=== PATIENT | male | born 1995 | race Caucasian/White ===

== ENCOUNTER 2023-06-08 22:23 | Inpatient (IN) ==
[2023-06-08] MEDS: SODIUM CHLORIDE 0.9% 1,000 ML IV SCH (23:07)
[2023-06-08] MEDS: ACETAMINOPHEN 1,000 MG/100 ML VIAL IV STA (23:07)
[2023-06-08 23:10] LABS: Basophils # (auto) 0.05 K/uL (0.00-0.20); Basophils % (auto) 0.3 %; Eosinophils # (auto) 0.05 K/uL (0.00-0.50); Eosinophils % (auto) 0.3 %; Hematocrit (blood only) 37.1 % (42.0-52.0); Hemoglobin 12.9 g/dl (14.0-18.0); Immature Granulocytes # (auto) 0.11 K/uL (0.01-0.20); Immature Granulocytes % (auto) 0.6 %; Lymphocytes % (auto) 12.2 %; Mean Corpuscular Hemoglobin 28.6 pg (25.0-34.0); Mean Corpuscular Hgb Conc 34.8 g/dL (32.0-36.0); Mean Corpuscular Volume 82.3 fL (80.0-100.0); Mean Platelet Volume 10.3 fL (9.4-12.4); Monocytes # (auto) 1.38 K/uL (0.11-0.59); Monocytes % (auto) 7.3 %; Neutrophils # (auto) 14.92 K/uL (1.40-6.50); Neutrophils % (auto) 79.3 %; Platelet Count 404 K/uL (130-400); RDW Coefficient of Variation 12.5 % (11.5-14.5); RDW Standard Deviation 37.9 fL (36.4-46.3); Red Blood Count 4.51 M/uL (4.70-6.10); White Blood Count 18.81 K/ul (4.8-10.8)
[2023-06-08] MEDS: AMPICILLIN/SULBACTAM SOD 3,000 MG in SODIUM CHLOR 0.9% MINI-B 100 ML IV STA (23:27)
[2023-06-08 23:29] LABS: Albumin Globulin Ratio 0.9 (0.9-2); Albumin Level 3.9 gm/dl (3.4-5.0); BUN Creatinine Ratio 17.7 (10-20); Bilirubin,Total 1.1 mg/dl (0.2-1.0); Calcium 9.7 mg/dl (8.6-10.3); Creatinine Clr Calc Pharmacy 139.3 ml/min; Est GFR (African American) 143.6 ml/min; Est GFR (Non-African American) 123.9 ml/min; Globulin 4.3 gm/dl (2.5-4.0); Magnesium 1.6 mg/dl (1.7-2.4); Potassium 3.4 mmol/L (3.5-5.1); Total Protein 8.2 gm/dl (6.0-8.3)
[2023-06-08 23:36] LABS: Troponin I High Sensitivity 4.2 pg/ml (0-20)
[2023-06-08 23:43] LABS: INR 1.1 (0.9-1.1); Partial Thromboplastin Time 28 Seconds (21-31); Prothrombin Time 11.9 Seconds (9.0-12.0)
--- NOTE | 2023-06-08 23:43 | Emergency Department Note ---
History of Present Illness General Chief complaint: Syncope Stated complaint: SYNCOPE, DENTAL PAIN Time Seen by Provider: 06/08/23 22:41 History of Present Illness Maximum Pain Intensity: 10 This is a 28-year-old male presenting to the emergency department for evaluation of left-sided facial pain and syncope. Patient arrives via EMS for evaluation of symptoms. Per history he was at [facility] 2 days ago and given penicillin and an unknown pain medication for possible dental infection. Patient states his last dose of the penicillin was about 6 hours ago. He feels his symptoms have worsened, prompting presentation to this facility. He is without chest pain, chest tightness, or shortness of breath. No known fever. Patient states that he has not followed with a regular doctor in over 15 years. Home Medications Medication Instructions Recorded Confirmed Type acetaminophen 300 mg-codeine 30 mg 1 tab PO Q4H PRN Pain 06/08/23 06/08/23 History tablet ibuprofen 200 mg tablet 400 - 800 mg PO DIRECTED PRN 06/08/23 06/08/23 History Pain penicillin V potassium 500 mg 500 mg PO QID 06/08/23 06/08/23 History tablet Allergies Allergy/AdvReac Type Severity Reaction Status Date / Time pollen extracts Allergy Intermediate ITCHY Verified 06/08/23 23:08 EYES, SNEEZING Past Med/Surg History Medical History No chronic diseases present Surgical History No significant past surgical history Social History Smoking Status: Former smoker Feels Safe at Home: Yes Review of Systems A total of 10 systems reviewed and were otherwise negative Physical Exam Vital Signs Vital Signs - 24 hr 06/08/23 22:35 06/08/23 22:37 06/08/23 23:00 Temperature 37.3 C Temperature Source Oral Pulse Rate 119 H 126 H 95 H Pulse Rate [Apical] Pulse Rate from SpO2 Sensor 94 H Pulse Rhythm [Apical] Pulse Strength [Apical] Respiratory Rate 25 H 15 Respiratory Effort / Characteristics Respiratory Depth Respiratory Pattern Blood Pressure 136/79 Blood Pressure [Right Arm] Blood Pressure Mean 98 Blood Pressure Mean [Right Arm] Blood Pressure Position [Right Arm] Pulse Oximetry 100 96 Oxygen Delivery Method Room Air Sepsis Recent Fever Within 48 Hours No Sepsis New/Unexplained Change in Mental Status N/A Sepsis Action Taken by Nursing No Action Required 06/08/23 23:00 06/08/23 23:30 06/08/23 23:30 Temperature Temperature Source Pulse Rate 104 H Pulse Rate [Apical] Pulse Rate from SpO2 Sensor 104 H Pulse Rhythm [Apical] Pulse Strength [Apical] Respiratory Rate 22 Respiratory Effort / Characteristics Respiratory Depth Respiratory Pattern Blood Pressure 136/87 132/75 Blood Pressure [Right Arm] Blood Pressure Mean 105 90 Blood Pressure Mean [Right Arm] Blood Pressure Position [Right Arm] Pulse Oximetry 98 Oxygen Delivery Method Sepsis Recent Fever Within 48 Hours Sepsis New/Unexplained Change in Mental Status Sepsis Action Taken by Nursing 06/09/23 00:00 06/09/23 00:00 06/09/23 00:30 Temperature Temperature Source Pulse Rate 107 H 101 H Pulse Rate [Apical] Pulse Rate from SpO2 Sensor 108 H 101 H Pulse Rhythm [Apical] Pulse Strength [Apical] Respiratory Rate 14 15 Respiratory Effort / Characteristics Respiratory Depth Respiratory Pattern Blood Pressure 121/78 Blood Pressure [Right Arm] Blood Pressure Mean 89 Blood Pressure Mean [Right Arm] Blood Pressure Position [Right Arm] Pulse Oximetry 94 96 Oxygen Delivery Method Sepsis Recent Fever Within 48 Hours Sepsis New/Unexplained Change in Mental Status Sepsis Action Taken by Nursing 06/09/23 01:00 06/09/23 01:30 06/09/23 01:46 Temperature Temperature Source Pulse Rate 98 H 100 H Pulse Rate [Apical] Pulse Rate from SpO2 Sensor 100 H 100 H Pulse Rhythm [Apical] Pulse Strength [Apical] Respiratory Rate 23 23 Respiratory Effort / Characteristics Respiratory Depth Respiratory Pattern Blood Pressure 130/73 Blood Pressure [Right Arm] Blood Pressure Mean 81 Blood Pressure Mean [Right Arm] Blood Pressure Position [Right Arm] Pulse Oximetry 95 96 Oxygen Delivery Method Sepsis Recent Fever Within 48 Hours Sepsis New/Unexplained Change in Mental Status Sepsis Action Taken by Nursing 06/09/23 01:49 06/09/23 02:00 06/09/23 02:00 Temperature Temperature Source Pulse Rate 86 Pulse Rate [Apical] 88 Pulse Rate from SpO2 Sensor 86 Pulse Rhythm [Apical] Regular Pulse Strength [Apical] Normal Respiratory Rate 20 18 Respiratory Effort / Characteristics Non-Labored Respiratory Depth Normal Respiratory Pattern Regular Blood Pressure 128/78 Blood Pressure [Right Arm] 130/73 Blood Pressure Mean 105 Blood Pressure Mean [Right Arm] 92 Blood Pressure Position [Right Arm] Sitting Pulse Oximetry 96 99 Oxygen Delivery Method Room Air Sepsis Recent Fever Within 48 Hours Sepsis New/Unexplained Change in Mental Status Sepsis Action Taken by Nursing 06/09/23 02:30 06/09/23 03:00 06/09/23 03:00 Temperature Temperature Source Pulse Rate 91 H Pulse Rate [Apical] Pulse Rate from SpO2 Sensor 91 H 85 Pulse Rhythm [Apical] Pulse Strength [Apical] Respiratory Rate 18 Respiratory Effort / Characteristics Respiratory Depth Respiratory Pattern Blood Pressure 128/78 Blood Pressure [Right Arm] Blood Pressure Mean 93 Blood Pressure Mean [Right Arm] Blood Pressure Position [Right Arm] Pulse Oximetry 97 98 Oxygen Delivery Method Sepsis Recent Fever Within 48 Hours Sepsis New/Unexplained Change in Mental Status Sepsis Action Taken by Nursing VITALS: Vitals are noted on the nurse's note and reviewed by myself. Vital signs tachycardia GENERAL: Well-developed, well-nourished, white male, who is moderately uncomfortable on presentation. HEAD: Normocephalic atraumatic. MOUTH: Notable left-sided facial edema. Dentition in poor repair. Mucous membranes moist. Tonsils are not enlarged. Pharynx without erythema, blood, or exudate. Uvula midline. Airway patent. NECK: Supple without nuchal rigidity. No lymphadenopathy. No thyromegaly. Cervical spine is nontender. HEART: Regular rate and rhythm without murmurs gallops or rubs. LUNGS: Clear to auscultation bilaterally without wheezes, rales or rhonchi. No retractions or accessory muscle use. ABDOMEN: Positive normal bowel sounds x 4. Soft, nontender, without masses or organomegaly. No guarding or rebound tenderness. Course Administered Medications Magnesium Sulfate/Dextrose (Magnesium Sulfate / D5w) 1 gm in 100 mls @ 50 mls/hr IV Q2H [facility] Stop: 06/09/23 05:59 Last Admin: 06/09/23 02:53 Dose: 50 mls/hr Documented By: MUNIR Potassium Chloride/Sodium Chloride (Normal Saline W/20 Meq Kcl) 20 meq in 1,000 mls @ 80 mls/hr IV .[id number] [facility]; Protocol Stop: 06/10/23 02:59 Last Admin: 06/09/23 02:53 Dose: 80 mls/hr Documented By: MUNIR Discontinued Medications Ampicillin Sodium/Sulbactam Sodium 3,000 mg/ Sodium Chloride 100 mls @ 200 mls/hr IV NOW STA Stop: 06/08/23 23:13 Last Infusion: 06/09/23 00:01 Dose: Infused Documented By: Admin: 06/08/23 23:27 Dose: 200 mls/hr Documented By: MUNIR Sodium Chloride (Nss) 1,000 mls @ 999 mls/hr IV .Q1H1M JOIE Stop: 06/08/23 23:45 Last Infusion: 06/09/23 00:10 Dose: Infused Documented By: Admin: 06/08/23 23:07 Dose: 999 mls/hr Documented By: ÁNGEL Acetaminophen (Ofirmev) 1,000 mg in 100 mls @ 400 mls/hr IV NOW STA Stop: 06/08/23 23:00 Last Infusion: 06/08/23 23:26 Dose: Infused Documented By: Admin: 06/08/23 23:07 Dose: 400 mls/hr Documented By: ÁNGEL Sodium Chloride (Nss) 1,000 mls @ 999 mls/hr IV .Q1H1M JOIE Stop: 06/09/23 01:15 Last Infusion: 06/09/23 02:52 Dose: Infused Documented By: Admin: 06/09/23 01:39 Dose: 999 mls/hr Documented By: MUNIR Pantoprazole Sodium 40 mg/ (Syringe) 10 mls @ 5 mls/min IV NOW STA Stop: 06/09/23 02:01 Last Admin: 06/09/23 02:53 Dose: 5 mls/min Documented By: MUNIR Ioversol (Optiray 320 100ml) 92 ml IV ONCE ONE Stop: 06/09/23 00:14 Last Admin: 06/09/23 00:13 Dose: 92 ml Documented By: KAYLEEN Medical Decision Making Differential Diagnosis Differential diagnosis includes: Etiologies such as cellulitis, abscess, osteomyelitis, MRSA infection, DVT, necrotizing fasciitis, dermatitis, drug eruption, as well as others were entertained Laboratory Data 06/08/23 22:37 06/08/23 22:37 Lab Results 06/08/23 06/08/23 06/08/23 Range/Units 22:37 23:08 23:50 WBC 18.81 H (4.8-10.8) K/ul RBC 4.51 L (4.70-6.10) M/uL Hgb 12.9 L (14.0-18.0) g/dl Hct 37.1 L (42.0-52.0) % MCV 82.3 (80.0-100.0) fL MCH 28.6 (25.0-34.0) pg MCHC 34.8 (32.0-36.0) g/dL RDW Std Deviation 37.9 (36.4-46.3) fL RDW Coeff of Ankush 12.5 (11.5-14.5) % Plt Count 404 H (130-400) K/uL MPV 10.3 (9.4-12.4) fL Immature Gran % (Auto) 0.6 % Neut % (Auto) 79.3 % Lymph % (Auto) 12.2 % Grand % (Auto) 7.3 % Eos % (Auto) 0.3 % Baso % (Auto) 0.3 % Neut # (Auto) 14.92 H (1.40-6.50) K/uL Lymph # (Auto) 2.30 (1.20-3.40) K/uL Grand # (Auto) 1.38 H (0.11-0.59) K/uL Eos # (Auto) 0.05 (0.00-0.50) K/uL Baso # (Auto) 0.05 (0.00-0.20) K/uL Immature Gran # (Auto) 0.11 (0.01-0.20) K/uL PT 11.9 (9.0-12.0) Seconds INR 1.1 (0.9-1.1) APTT 28 (21-31) Seconds PTT Ratio 1.0 Sodium 133 L (136-145) mmol/L Potassium 3.4 L (3.5-5.1) mmol/L Chloride 96 L (98-107) mmol/L Carbon Dioxide 21 (21-32) mmol/L Anion Gap 16 H (3-11) BUN 14 (6-23) mg/dl Creatinine 0.79 (0.6-1.4) mg/dl Est Cr Clr Drug Dosing 139.3 ml/min Est GFR ( Amer) 143.6 ml/min Est GFR (Non-Af Amer) 123.9 ml/min BUN/Creatinine Ratio 17.7 (10-20) Glucose 102 H (70-99(Fasting)) mg/dl Lactate 1.9 (0.4-2.0) mmol/L Calcium 9.7 (8.6-10.3) mg/dl Magnesium 1.6 L (1.7-2.4) mg/dl Total Bilirubin 1.1 H (0.2-1.0) mg/dl AST 30 (13-39) U/L ALT 38 (7-52) U/L Alkaline Phosphatase 92 (34-104) U/L Troponin I High Sens 4.2 (0-20) pg/ml Total Protein 8.2 (6.0-8.3) gm/dl Albumin 3.9 (3.4-5.0) gm/dl Globulin 4.3 H (2.5-4.0) gm/dl Albumin/Globulin Ratio 0.9 (0.9-2) Urine Color Dark Yellow Urine Appearance Clear (Clear) Urine pH 8.0 H (4.5-7.5) Ur Specific [place] 1.029 (1.000-1.030) Urine Protein 1+ H (Negative) Urine Glucose (UA) Negative (Negative) Urine Ketones 4+ H (Negative) Urine Blood Negative (Negative) Urine Nitrite Negative (Negative) Urine Bilirubin 1+ H (Negative) Urine Urobilinogen Positive H (Negative) Ur Leukocyte Esterase Negative (Negative) Urine WBC (Auto) 1-5 (0-5) /hpf Urine RBC (Auto) 5-10 H (0-4) /hpf U Hyaline Cast (Auto) 0 (0-5) /lpf U Epithel Cells (Auto) 20-30 H (0-5) /lpf Urine Bacteria (Auto) Negative (Negative) Urine Opiates Screen Pos H (Neg) Ur Methadone, Qual Neg (Neg) Urine Barbiturates Neg (Neg) Ur Phencyclidine (PCP) Neg (Neg) U Amphetamin/Meth Scrn Neg (Neg) MDMA (Ecstasy) Screen Neg (Neg) U Benzodiazepines Scrn Neg (Neg) Ur Cocaine Metabolite Neg (Neg) U Marijuana (THC) Screen Pos H (Neg) Ethyl Alcohol mg/dL < 10.0 (<10.0) mg/dl Imaging Data Radiologist's Impression: Soft Tissue Neck CT 06/08/23 22:44 CR Exam(s): CT NECK With Contrast IV Amt: 92 ml opti 320 EXAM: CT Neck With Intravenous Contrast CLINICAL HISTORY: Left side facial swelling. TECHNIQUE: Axial computed tomography images of the neck with intravenous contrast. CTDI is 13.86 mGy and DLP is 503.09 mGy-cm. Automated exposure control was utilized for the study. A dose lowering technique was utilized adhering to the principles of ALARA. CONTRAST: Patient received 92 ml opti 320 of IV contrast COMPARISON: No relevant prior studies available. FINDINGS: Oropharynx: Unremarkable. No significant tonsillar enlargement. No peritonsillar abscess. Hypopharynx: Unremarkable. Larynx: Unremarkable. Normal epiglottis. Trachea: Unremarkable. Retropharyngeal space: Unremarkable. Submandibular/parotid glands: Unremarkable. Glands are normal in size. Thyroid: Unremarkable. No enlarged or calcified nodules. Bones/joints: A multiloculated abscess surrounding the left mandibular ramus measures 6 x 4 x 4 cm in aggregate. No acute fracture. Soft tissues: Unremarkable. Vasculature: No acute findings. Lymph nodes: Prominent lymph nodes in the left neck are likely reactive. Dental: Numerous dental caries throughout the dentition is noted. Presumed large periapical abscess of the second left mandibular molar. Additional periapical abscesses of the first and second right mandibular molars are noted. IMPRESSION: 1. A multiloculated abscess surrounding the left mandibular ramus measures 6 x 4 x 4 cm in aggregate. 2. Presumed large periapical abscess of the second left mandibular molar. 3. Additional periapical abscesses of the first and second right mandibular molars are noted. 4. Numerous dental caries throughout the dentition is noted. Communications: Verify Receipt Electronically signed by: Ginette Bonilla MD 06/09/23 00:34 AM MDM Narrative Physical exam and history were performed. Nursing notes, EMR, and Medication List were personally reviewed. No social concerns were identified as barriers to patients care. Patient appears to have had a syncopal episode today. On presentation the patient is tachycardic and tachypneic. He has notable edema to the left side of his face. IV access was established and labs were obtained. He was immediately started on Unasyn and sent to CT scan for imaging. Patient's blood work is as above and was reviewed. He does have an elevated white blood cell count of 18,000. He is mildly anemic at 12.9. Transaminases are not diagnostic. Lactic is normal at 1.9 with blood cultures pending. Urine shows some ketones, and he was given [address] scan was reviewed by myself and radiology, and does show large left-sided facial abscess. Overall the patient does not appear well for discharge home. Case was discussed with the on-call hospitalist who agreed to evaluate the patient here in the ER. I did send a message to Dr. Cornelius who is on-call for oral maxillofacial surgery, as he will likely need to be involved at some point in the patient's care. Please see the hospitalist dictation for further patient course, plan, and disposition. The chart was completed utilizing [id number] Speech Voice Recognition Software. Grammatical errors, random word insertions, pronoun errors, and incomplete sentences are an occasional consequence of this system due to software limitations, ambient noise, and hardware issues. Any formal questions or concerns about the content, text, or information contained within the body of this dictation should be directly addressed to the provider for clarification. . Impression & Plan Abscess of face Discharge Plan Visit Data Chief Complaint: Syncope Stated Complaint: SYNCOPE, DENTAL PAIN ED Provider: Rubio Sutton ED Midlevel Provider: Thierno Dowd Discharge Problem: Abscess of face Discharge Instructions Interventions: ED Discharge Assessment Last Done: 06/09/23 04:12 Forms Stand Alone Forms: [place] Prescriptions Prescriptions: No Action penicillin V potassium 500 mg Tablet 500 mg PO QID Rx Instructions: PER PT "HAVE A COUPLE LEFT" acetaminophen-codeine [Tylenol-Codeine #3] 300-30 mg Tablet 1 tab PO Q4H PRN (Reason: Pain) ibuprofen 200 mg Tablet 400 - 800 mg PO DIRECTED PRN (Reason: Pain) Referrals Referrals: PCP,NO [Primary Care Provider] -
[2023-06-09 00:10] LABS: Appearance Urine Clear (Clear); Bacteria Urine Automated Negative (Negative); Blood Urine Negative (Negative); Cast Urine Automated 0 /lpf (0-5); Color Urine Dark Yellow; Epithelial Cell Urine Auto 20-30 /lpf (0-5); Glucose Urine UA Negative (Negative); Ketones Urine 4+ (Negative); Leukocyte Esterase Urine Negative (Negative); Nitrite Urine Negative (Negative); Specific Gravity Urine 1.029 (1.000-1.030); Urobilinogen Urine Positive (Negative)
[2023-06-09 00:11] LABS: Bilirubin Urine 1+ (Negative); Protein Urine 1+ (Negative)
[2023-06-09] MEDS: OPTIRAY 320 100ml IV ONE (00:13)
--- NOTE | 2023-06-09 00:35 | CT Scan Report ---
Exam(s): CT NECK With Contrast IV Amt: 92 ml opti 320 EXAM: CT Neck With Intravenous Contrast CLINICAL HISTORY: Left side facial swelling. TECHNIQUE: Axial computed tomography images of the neck with intravenous contrast. CTDI is 13.86 mGy and DLP is 503.09 mGy-cm. Automated exposure control was utilized for the study. A dose lowering technique was utilized adhering to the principles of ALARA. CONTRAST: Patient received 92 ml opti 320 of IV contrast COMPARISON: No relevant prior studies available. FINDINGS: Oropharynx: Unremarkable. No significant tonsillar enlargement. No peritonsillar abscess. Hypopharynx: Unremarkable. Larynx: Unremarkable. Normal epiglottis. Trachea: Unremarkable. Retropharyngeal space: Unremarkable. Submandibular/parotid glands: Unremarkable. Glands are normal in size. Thyroid: Unremarkable. No enlarged or calcified nodules. Bones/joints: A multiloculated abscess surrounding the left mandibular ramus measures 6 x 4 x 4 cm in aggregate. No acute fracture. Soft tissues: Unremarkable. Vasculature: No acute findings. Lymph nodes: Prominent lymph nodes in the left neck are likely reactive. Dental: Numerous dental caries throughout the dentition is noted. Presumed large periapical abscess of the second left mandibular molar. Additional periapical abscesses of the first and second right mandibular molars are noted. IMPRESSION: 1. A multiloculated abscess surrounding the left mandibular ramus measures 6 x 4 x 4 cm in aggregate. 2. Presumed large periapical abscess of the second left mandibular molar. 3. Additional periapical abscesses of the first and second right mandibular molars are noted. 4. Numerous dental caries throughout the dentition is noted. Communications: Verify Receipt Electronically signed by: Ginette Bonilla MD 06/09/23 00:34 AM
[2023-06-09 00:45] LABS: Amphetamines+Metham, Urine Neg (Neg); Barbiturates, Urine Neg (Neg); Benzodiazepine, Urine Neg (Neg); Cocaine, Urine Neg (Neg); MDMA (Ecstacy), Urine Neg (Neg); Marijuana, Urine Pos (Neg); Methadone, Urine Neg (Neg); Opiate, Urine Pos (Neg); Phencyclidine, Urine Neg (Neg)
[2023-06-09] MEDS: SODIUM CHLORIDE 0.9% 1,000 ML IV SCH (01:39)
--- NOTE | 2023-06-09 02:05 | History & Physical Report ---
Date of Service June 09, 2023 Assessment & Plan (1) Abscess of face: (2) Periapical abscess with facial involvement: (3) Hypomagnesemia: Plan Multiloculated abscess surrounding left mandibular ramus- Measures 6 x 4 x 4 cm Large periapical abscess of the second left mandibular molar Additional periapical abscesses of the first and second right mandibular molars Numerous dental carious N.p.o. Unasyn 3 g IV every 6 hours Status post 2 L normal saline in the ED NSS + KCl 20 mill equivalents at 80 mL/h x 2 additional liters Pantoprazole 40 mg IV daily Tylenol 1 g IV every 8 hours as needed for mild pain or fever Morphine sulfate 2 mg IV every 3 hours as needed for moderate to severe pain Consult Dr. Cornelius Hypomagnesemia- Magnesium 1.6 on admission Give magnesium sulfate 2 g IV, and recheck laboratories in a.m. History of Present Illness Chief Complaint: The patient presents to the emergency department with a syncopal episode, and progressively worsening dental pain and left facial swelling over the past 48 hours, and now is not able to open his mouth Primary Care Provider: NO PCP The patient is a 28-year-old male with no significant past medical history, who initially presented to [facility] 2 days ago for progressively worsening left-sided facial pain and swelling, along with a syncopal episode, and was given a prescription for Pen-Vee K and acetaminophen with codeine. His symptoms worsened considerably since then, and presented to the emergency department at [facility] for assessment. CT scan of soft tissue of neck and face showed a 6 x 4 x 4 cm left mandibular ramus abscess, and a large periapical abscess second left, and a small right mandibular abscess adjacent to first and second Allergies Allergy/AdvReac Type Severity Reaction Status Date / Time pollen extracts Allergy Intermediate ITCHY Verified 06/08/23 23:08 EYES, SNEEZING Home Medications Medication Instructions Recorded Confirmed Type acetaminophen 300 mg-codeine 30 mg 1 tab PO Q4H PRN Pain 06/08/23 06/08/23 History tablet ibuprofen 200 mg tablet 400 - 800 mg PO DIRECTED PRN 06/08/23 06/08/23 History Pain penicillin V potassium 500 mg 500 mg PO QID 06/08/23 06/08/23 History tablet Past Med/Surg History Medical History No chronic diseases present Surgical History No significant past surgical history Social History Smoking Status: Former smoker Hx Alcohol Use: No Hx Substance Use: No Preferred Language: Tamazight Communication Ability: Effective Blindmaker Required: No Beliefs That Will Affect Care: None Feels Safe at Home: Yes Safety Concerns: Feels Safe At This Time Review of Systems Review of Systems: The patient denies chest pain, palpitations, shortness of breath, dyspnea on exertion, cough, lower extremity swelling, fevers, chills, sweats, diarrhea , constipation, abdominal pain, pelvic pain, blood in urine or stool, dysuria, urinary frequency or urgency, memory loss, loss of consciousness, rash, abnormal bruising or bleeding, imbalance, focal or generalized weakness, numbness or tingling in arms or legs, generalized arthralgias or myalgias, back or neck pain, or night sweats. The review of systems is otherwise negative other than for that already noted above, and at least 10 systems have been reviewed. Physical Exam Physical Exam: The patient is awake, alert and oriented 3, well developed and well nourished, lying in bed and in no acute distress. HEENT--PERRL, EOMI. Limited exam due to inability open mouth wide, but visible abscess left mucous membranes Neck--supple. No JVD. No bruits. Thyroid normal, trachea midline, no adenopathy. Heart--normal S1 and S2. No murmurs, rubs or gallops. Lungs--clear bilaterally, no respiratory distress, no accessory muscle use. Abdomen--normal bowel sounds and soft. Nontender. Nondistended, no hernias or masses, no organomegaly. Extremities--no cyanosis or clubbing. No edema. Dermatologic--normal skin turgor, normal color, no abnormal lymph nodes, no rash. Neurologic--cranial nerves II through XII grossly intact. Rheumatologic--normal range of motion. Psychiatric--normal affect. Results & Data Results & Data Vital Signs (Past 12 Hours) Vital Signs Temp Pulse Pulse Resp BP BP Pulse Ox 06/09/23 01:49 88 20 130/73 96 06/08/23 22:37 126 H 06/08/23 22:35 37.3 C 119 H 25 H 136/79 100 O2 Del Method 06/09/23 01:49 Room Air 06/08/23 22:37 06/08/23 22:35 Room Air Laboratory Results Laboratory Results WBC 18.81 K/ul (4.8-10.8) H 06/08/23 22:37 RBC 4.51 M/uL (4.70-6.10) L 06/08/23 22:37 Hgb 12.9 g/dl (14.0-18.0) L 06/08/23 22:37 Hct 37.1 % (42.0-52.0) L 06/08/23 22:37 MCV 82.3 fL (80.0-100.0) 06/08/23 22:37 MCH 28.6 pg (25.0-34.0) 06/08/23 22:37 MCHC 34.8 g/dL (32.0-36.0) 06/08/23 22:37 RDW Std Deviation 37.9 fL (36.4-46.3) 06/08/23 22:37 RDW Coeff of Ankush 12.5 % (11.5-14.5) 06/08/23 22:37 Plt Count 404 K/uL (130-400) H 06/08/23 22:37 MPV 10.3 fL (9.4-12.4) 06/08/23 22:37 Immature Gran % (Auto) 0.6 % 06/08/23 22:37 Neut % (Auto) 79.3 % 06/08/23 22:37 Lymph % (Auto) 12.2 % 06/08/23 22:37 Pepin % (Auto) 7.3 % 06/08/23 22:37 Eos % (Auto) 0.3 % 06/08/23 22:37 Baso % (Auto) 0.3 % 06/08/23 22:37 Neut # (Auto) 14.92 K/uL (1.40-6.50) H 06/08/23 22:37 Lymph # (Auto) 2.30 K/uL (1.20-3.40) 06/08/23 22:37 Pepin # (Auto) 1.38 K/uL (0.11-0.59) H 06/08/23 22:37 Eos # (Auto) 0.05 K/uL (0.00-0.50) 06/08/23 22:37 Baso # (Auto) 0.05 K/uL (0.00-0.20) 06/08/23 22:37 Immature Gran # (Auto) 0.11 K/uL (0.01-0.20) 06/08/23 22:37 PT 11.9 Seconds (9.0-12.0) 06/08/23 22:37 INR 1.1 (0.9-1.1) 06/08/23 22:37 APTT 28 Seconds (21-31) 06/08/23 22:37 PTT Ratio 1.0 06/08/23 22:37 Sodium 133 mmol/L (136-145) L 06/08/23 22:37 Potassium 3.4 mmol/L (3.5-5.1) L 06/08/23 22:37 Chloride 96 mmol/L (98-107) L 06/08/23 22:37 Carbon Dioxide 21 mmol/L (21-32) 06/08/23 22:37 Anion Gap 16 (3-11) H 06/08/23 22:37 BUN 14 mg/dl (6-23) 06/08/23 22:37 Creatinine 0.79 mg/dl (0.6-1.4) 06/08/23 22:37 Est Cr Clr Drug Dosing 139.3 ml/min 06/08/23 22:37 Est GFR ( Amer) 143.6 ml/min 06/08/23 22:37 Est GFR (Non-Af Amer) 123.9 ml/min 06/08/23 22:37 BUN/Creatinine Ratio 17.7 (10-20) 06/08/23 22:37 Glucose 102 mg/dl (70-99(Fasting)) H 06/08/23 22:37 Lactate 1.9 mmol/L (0.4-2.0) 06/08/23 23:08 Calcium 9.7 mg/dl (8.6-10.3) 06/08/23 22:37 Magnesium 1.6 mg/dl (1.7-2.4) L 06/08/23 22:37 Total Bilirubin 1.1 mg/dl (0.2-1.0) H 06/08/23 22:37 AST 30 U/L (13-39) 06/08/23 22:37 ALT 38 U/L (7-52) 06/08/23 22:37 Alkaline Phosphatase 92 U/L (34-104) 06/08/23 22:37 Troponin I High Sens 4.2 pg/ml (0-20) 06/08/23 22:37 Total Protein 8.2 gm/dl (6.0-8.3) 06/08/23 22:37 Albumin 3.9 gm/dl (3.4-5.0) 06/08/23 22:37 Globulin 4.3 gm/dl (2.5-4.0) H 06/08/23 22:37 Albumin/Globulin Ratio 0.9 (0.9-2) 06/08/23 22:37 Urine Color Dark Yellow 06/08/23 23:50 Urine Appearance Clear (Clear) 06/08/23 23:50 Urine pH 8.0 (4.5-7.5) H 06/08/23 23:50 Ur Specific Twining 1.029 (1.000-1.030) 06/08/23 23:50 Urine Protein 1+ (Negative) H 06/08/23 23:50 Urine Glucose (UA) Negative (Negative) 06/08/23 23:50 Urine Ketones 4+ (Negative) H 06/08/23 23:50 Urine Blood Negative (Negative) 06/08/23 23:50 Urine Nitrite Negative (Negative) 06/08/23 23:50 Urine Bilirubin 1+ (Negative) H 06/08/23 23:50 Urine Urobilinogen Positive (Negative) H 06/08/23 23:50 Ur Leukocyte Esterase Negative (Negative) 06/08/23 23:50 Urine WBC (Auto) 1-5 /hpf (0-5) 06/08/23 23:50 Urine RBC (Auto) 5-10 /hpf (0-4) H 06/08/23 23:50 U Hyaline Cast (Auto) 0 /lpf (0-5) 06/08/23 23:50 U Epithel Cells (Auto) 20-30 /lpf (0-5) H 06/08/23 23:50 Urine Bacteria (Auto) Negative (Negative) 06/08/23 23:50 Urine Opiates Screen Pos (Neg) H 06/08/23 23:50 Ur Methadone, Qual Neg (Neg) 06/08/23 23:50 Urine Barbiturates Neg (Neg) 06/08/23 23:50 Ur Phencyclidine (PCP) Neg (Neg) 06/08/23 23:50 U Amphetamin/Meth Scrn Neg (Neg) 06/08/23 23:50 MDMA (Ecstasy) Screen Neg (Neg) 06/08/23 23:50 U Benzodiazepines Scrn Neg (Neg) 06/08/23 23:50 Ur Cocaine Metabolite Neg (Neg) 06/08/23 23:50 U Marijuana (THC) Screen Pos (Neg) H 06/08/23 23:50 Ethyl Alcohol mg/dL < 10.0 mg/dl (<10.0) 06/08/23 23:08 Impressions Soft Tissue Neck CT 06/08/23 22:44 CR Exam(s): CT NECK With Contrast IV Amt: 92 ml opti 320 EXAM: CT Neck With Intravenous Contrast CLINICAL HISTORY: Left side facial swelling. TECHNIQUE: Axial computed tomography images of the neck with intravenous contrast. CTDI is 13.86 mGy and DLP is 503.09 mGy-cm. Automated exposure control was utilized for the study. A dose lowering technique was utilized adhering to the principles of ALARA. CONTRAST: Patient received 92 ml opti 320 of IV contrast COMPARISON: No relevant prior studies available. FINDINGS: Oropharynx: Unremarkable. No significant tonsillar enlargement. No peritonsillar abscess. Hypopharynx: Unremarkable. Larynx: Unremarkable. Normal epiglottis. Trachea: Unremarkable. Retropharyngeal space: Unremarkable. Submandibular/parotid glands: Unremarkable. Glands are normal in size. Thyroid: Unremarkable. No enlarged or calcified nodules. Bones/joints: A multiloculated abscess surrounding the left mandibular ramus measures 6 x 4 x 4 cm in aggregate. No acute fracture. Soft tissues: Unremarkable. Vasculature: No acute findings. Lymph nodes: Prominent lymph nodes in the left neck are likely reactive. Dental: Numerous dental caries throughout the dentition is noted. Presumed large periapical abscess of the second left mandibular molar. Additional periapical abscesses of the first and second right mandibular molars are noted. IMPRESSION: 1. A multiloculated abscess surrounding the left mandibular ramus measures 6 x 4 x 4 cm in aggregate. 2. Presumed large periapical abscess of the second left mandibular molar. 3. Additional periapical abscesses of the first and second right mandibular molars are noted. 4. Numerous dental caries throughout the dentition is noted. Communications: Verify Receipt Electronically signed by: Ginette Bonilla MD 06/09/23 00:34 AM Code Status & VTE Plan Code Status Full code VTE Prophylaxis Plan VTE Prophylaxis will be ordered: Yes PG Care Time/CCT Total # of Minutes Spent Total Time Spent with Patient: Total time spent is greater than 50% in coordination of care (as documented) at patient's floor/unit and/or counseling patient: Coding Level of Care Code 64215 INT INP/OBS CARE 3/75MIN Diagnoses Abscess of face L02.01 Periapical abscess with facial involvement K04.7 Hypomagnesemia E83.42
[2023-06-09] MEDS: PANTOprazole 40 MG in SYRINGE 0 ML IV STA (02:53)
[2023-06-09] MEDS: MAGNESIUM SULFATE / D5W 1 GM/100 ML BAG IV SCH (02:53)
[2023-06-09] MEDS: NSS + 20MEQ KCL 20 MEQ/1,000 ML BAG IV SCH (02:53)
[2023-06-09] MEDS ORDERED: ONDANSETRON INJ 2 MG/ML 2 ML VIAL IV PRN (05:00)
[2023-06-09] MEDS: MoRPHine SULFATE 2 MG/ML CARP IV PRN (05:01)
[2023-06-09] MEDS: AMPICILLIN/SULBACTAM SOD 3,000 MG in SODIUM CHLOR 0.9% MINI-B 100 ML IV SCH (06:00)
--- NOTE | 2023-06-09 07:38 | Hospitalist Progress Note ---
Date of Service June 09, 2023 Assessment & Plan (1) Hypomagnesemia: (2) Periapical abscess with facial involvement: (3) Abscess of face: Plan Ovidio Daugherty is a 28-year-old male with no significant past medical history, who initially presented to [facility] 2 days ago for progressively worsening left-sided facial pain and swelling, along with a syncopal episode, and was given a prescription for Pen-Vee K and acetaminophen with codeine. His symptoms worsened considerably since then, and presented to the emergency department at [facility] for evaluation. Multiloculated abscess surrounding left mandibular ramus -Large periapical abscess of the second left mandibular molar, measures 6 x 4 x 4 cm -Additional periapical abscesses of the first and second right mandibular molars. Numerous dental caries. -Dr. Cornelius reviewed imaging, but is currently out of town. Recommend continuing IV antibiotics and Peridex mouthwash. -Anticipate improvement of symptoms in next 1-2 days, but if more immediate care/incision & drainage is needed he will need to be transferred to outside hospital. -Unasyn 3 g IV every 6 hours -Pantoprazole 40 mg IV daily -Tylenol 1 g IV every 8 hours as needed for mild pain or fever, Morphine sulfate 2 mg IV every 3 hours as needed for moderate to severe pain Hypomagnesemia -Magnesium 1.6 on admission, repleted -Repeat magnesium level ordered for a.m. VTE Prophylaxis: Low risk Diet: NPO since unable to swallow, IVF Code Status: Full Code Admission and Anticipated Discharge Date Admission Date: June 09, 2023 Supervising Physician Co-Signing Physician Notes Attending Physician Supervision Note: I independently interviewed and examined the patient and verified the sanford history and physical, reviewed labs and image studies and agree with findings and care plan noted above. Subjective Patient seen and examined at bedside. Patient endorses ongoing pain but states it does improve temporarily with the Tylenol and Morphine. He notes pain with movement of his head as well as with talking. Denies shortness of breath, chest pain, abdominal pain. Review of Systems Review of Systems: As per above Physical Exam Constitutional: WD/WN, vitals as above Eyes: + anicteric sclerae; no conjunctival abn ormality ENMT: Ears: no external ear abnormality Nose: no external nose abnormality Mouth: + restricted motion of mouth, + dental caries, + poor dentition and + small oral opening Patient unable to fully open mouth due to pain. Notable swelling at left side of face, significant tenderness with light touch to impacted region. Respiratory: normal respiratory effort, lungs clear to auscultation Cardiovascular: Rate/Rhythm: regular rate and regular rhythm Skin: no rashes, warm and dry Psychiatric: A+Ox3, euthymic affect Results & Data Results & Data Vital Signs (Past 12 Hours) Vital Signs Temp Pulse Pulse Pulse Resp BP BP 06/09/23 04:00 06/09/23 04:00 37.0 C 105 H 18 126/72 06/09/23 03:00 128/78 06/09/23 03:00 06/09/23 02:30 91 H 18 06/09/23 02:00 128/78 06/09/23 02:00 86 18 06/09/23 01:49 88 20 130/73 06/09/23 01:46 130/73 06/09/23 01:30 100 H 23 06/09/23 01:00 98 H 23 06/09/23 00:30 101 H 15 06/09/23 00:00 107 H 14 06/09/23 00:00 121/78 06/08/23 23:30 104 H 22 06/08/23 23:30 132/75 06/08/23 23:00 136/87 06/08/23 23:00 95 H 15 06/08/23 22:37 126 H 06/08/23 22:35 37.3 C 119 H 25 H 136/79 Pulse Ox O2 Del Method 06/09/23 04:00 Room Air 06/09/23 04:00 100 Room Air 06/09/23 03:00 06/09/23 03:00 98 06/09/23 02:30 97 06/09/23 02:00 06/09/23 02:00 99 06/09/23 01:49 96 Room Air 06/09/23 01:46 06/09/23 01:30 96 06/09/23 01:00 95 06/09/23 00:30 96 06/09/23 00:00 94 06/09/23 00:00 06/08/23 23:30 98 06/08/23 23:30 06/08/23 23:00 06/08/23 23:00 96 06/08/23 22:37 06/08/23 22:35 100 Room Air Resident Activity Tracking Resident Involvement: Resident Care Provided Care Provided: Adult Hospital Medicine
[2023-06-09 07:43] LABS: Basophils # (auto) 0.07 K/uL (0.00-0.20); Basophils % (auto) 0.4 %; Eosinophils % (auto) 0.5 %; Hematocrit (blood only) 32.4 % (42.0-52.0); Immature Granulocytes % (auto) 0.5 %; Lymphocytes # (auto) 1.96 K/uL (1.20-3.40); Lymphocytes % (auto) 10.7 %; Mean Corpuscular Hemoglobin 28.5 pg (25.0-34.0); Mean Corpuscular Volume 83.9 fL (80.0-100.0); Mean Platelet Volume 10.5 fL (9.4-12.4); Monocytes # (auto) 1.33 K/uL (0.11-0.59); Monocytes % (auto) 7.3 %; Neutrophils # (auto) 14.77 K/uL (1.40-6.50); Neutrophils % (auto) 80.6 %; Platelet Count 344 K/uL (130-400); RDW Coefficient of Variation 12.9 % (11.5-14.5); RDW Standard Deviation 39.3 fL (36.4-46.3); Red Blood Count 3.86 M/uL (4.70-6.10); White Blood Count 18.33 K/ul (4.8-10.8)
[2023-06-09] MEDS: ACETAMINOPHEN 1,000 MG/100 ML VIAL IV PRN (07:52)
[2023-06-09 08:06] LABS: Albumin Level 3.3 gm/dl (3.4-5.0); Anion Gap 9 (3-11); BUN Creatinine Ratio 14.5 (10-20); Blood Urea Nitrogen 9 mg/dl (6-23); Calcium 8.5 mg/dl (8.6-10.3); Carbon Dioxide 24 mmol/L (21-32); Chloride 101 mmol/L (98-107); Est GFR (African American) > 150.0 ml/min; Est GFR (Non-African American) 136.9 ml/min; Glucose 115 mg/dl (70-99(Fasting)); Magnesium 2.2 mg/dl (1.7-2.4); Phosphorus 3.1 mg/dl (2.5-4.9); Potassium 3.8 mmol/L (3.5-5.1); Sodium 134 mmol/L (136-145)
[2023-06-09] MEDS: PANTOprazole 40 MG in SYRINGE 0 ML IV SCH (10:12)
--- NOTE | 2023-06-09 10:33 | Oral/Maxillofacial Consult ---
Date of Consultation June 09, 2023 Assessment & Plan (1) Hypomagnesemia: (2) Periapical abscess with facial involvement: (3) Abscess of face: (4) No significant past surgical history: (5) No chronic diseases present: History of Present Illness Attending Physician: Alina Rodrigues MD History of Present Illness This is a 28-year-old male presenting to the emergency department for evaluation of left-sided facial pain and syncope. Patient arrives via EMS for evaluation of symptoms. Per history he was at [facility] 2 days ago and given penicillin and an unknown pain medication for possible dental infection. Patient states his last dose of the penicillin was about 6 hours ago. He feels his symptoms have worsened, prompting presentation to this facility. He is without chest pain, chest tightness, or shortness of breath. No known fever. Patient states that he has not followed with a regular doctor in over 15 years. I personally reviewed the CT scan and agree with the findings of a left facial abscess from the multiply carious an infected teeth. It appreas that many or possibly all this teeth will need extracted and prepaire him for futures dentures. Most the posterior teeth show significant bone loss and periapical infection ( localized osteomyelitis). At present the plan should be to control the swelling with IV antibiotics and once the acute phase has improved to remove the necessary teeth. If he does not improve on IV antibiotics the I and D will be needed. Unfortunately I am out of town from June 08- and will be back at work on ThursdayJune 14. I would suggest: IV antibiotics Peridex mouth rinse 3 x a day rinse 15 ml for 30 sec and then spit out Warm compress to the swollen side Diet at tolerated Hopefully in 36-48 hours he will begine to improve and the swelling will start to decreass along with his pain. Once that occures he can be discharged on oral antibiotics. I will be able to see him in my office Thursday or Thursday and then decide on the next phase of thie treatment which will inckude: Drain any residual infection and extraction of the necessary teeth. If you have any questions I am available by phone at [phone]. If more immediate treatment is needed then he will have to be transfered to an other facility where there ia an oral surgeon computer education teacher. Thanks for your understanding Allergies Allergy/AdvReac Type Severity Reaction Status Date / Time pollen extracts Allergy Intermediate ITCHY Verified 06/08/23 23:08 EYES, SNEEZING Home Medications Medication Instructions Recorded Confirmed Type acetaminophen 300 mg-codeine 30 mg 1 tab PO Q4H PRN Pain 06/08/23 06/08/23 History tablet ibuprofen 200 mg tablet 400 - 800 mg PO DIRECTED PRN 06/08/23 06/08/23 History Pain penicillin V potassium 500 mg 500 mg PO QID 06/08/23 06/08/23 History tablet Patient History Medical History No chronic diseases present Surgical History No significant past surgical history Social History Smoking Status: Former smoker Hx Alcohol Use: No Hx Substance Use: No Preferred Language: Polish Communication Ability: Effective Automobile Radio Repairer Required: No Beliefs That Will Affect Care: None Feels Safe at Home: Yes Safety Concerns: Feels Safe At This Time Results & Data Vital Signs (Past 12 Hours) Vital Signs Temp Pulse Pulse Pulse Resp BP BP 06/09/23 08:10 37.7 C H 98 H 16 138/79 06/09/23 04:00 06/09/23 04:00 37.0 C 105 H 18 126/72 06/09/23 03:00 128/78 06/09/23 03:00 06/09/23 02:30 91 H 18 06/09/23 02:00 128/78 06/09/23 02:00 86 18 06/09/23 01:49 88 20 130/73 06/09/23 01:46 130/73 06/09/23 01:30 100 H 23 06/09/23 01:00 98 H 23 06/09/23 00:30 101 H 15 06/09/23 00:00 107 H 14 06/09/23 00:00 121/78 06/08/23 23:30 104 H 22 06/08/23 23:30 132/75 06/08/23 23:00 136/87 06/08/23 23:00 95 H 15 06/08/23 22:37 126 H 06/08/23 22:35 37.3 C 119 H 25 H 136/79 Pulse Ox O2 Del Method 06/09/23 08:10 95 Room Air 06/09/23 04:00 Room Air 06/09/23 04:00 100 Room Air 06/09/23 03:00 06/09/23 03:00 98 06/09/23 02:30 97 06/09/23 02:00 06/09/23 02:00 99 06/09/23 01:49 96 Room Air 06/09/23 01:46 06/09/23 01:30 96 06/09/23 01:00 95 06/09/23 00:30 96 06/09/23 00:00 94 06/09/23 00:00 06/08/23 23:30 98 06/08/23 23:30 06/08/23 23:00 06/08/23 23:00 96 06/08/23 22:37 06/08/23 22:35 100 Room Air PG Care Time/CCT Total # of Minutes Spent Total Time Spent with Patient: Total time spent is greater than 50% in coordination of care (as documented) at patient's floor/unit and/or counseling patient: Coding Level of Care Code 43109 IN/OBS CONSULT LVL 2,35M Diagnoses Hypomagnesemia E83.42 Periapical abscess with facial involvement K04.7 Abscess of face L02.01 No significant past surgical history No chronic diseases present
[2023-06-09] MEDS: CHLORHEXIDINE GLUCONATE 0.12% 480 ML MT SCH (14:22)
[2023-06-09] MEDS: D5NSS + 20MEQ KCL 20 MEQ/1,000 ML BAG IV SCH (17:01)
[2023-06-10 07:29] LABS: Basophils # (auto) 0.05 K/uL (0.00-0.20); Basophils % (auto) 0.3 %; Eosinophils # (auto) 0.18 K/uL (0.00-0.50); Eosinophils % (auto) 0.9 %; Hematocrit (blood only) 32.5 % (42.0-52.0); Hemoglobin 10.7 g/dl (14.0-18.0); Immature Granulocytes # (auto) 0.12 K/uL (0.01-0.20); Immature Granulocytes % (auto) 0.6 %; Lymphocytes # (auto) 2.19 K/uL (1.20-3.40); Mean Corpuscular Hemoglobin 28.3 pg (25.0-34.0); Mean Corpuscular Hgb Conc 32.9 g/dL (32.0-36.0); Mean Platelet Volume 10.4 fL (9.4-12.4); Monocytes # (auto) 1.32 K/uL (0.11-0.59); Monocytes % (auto) 6.7 %; Neutrophils # (auto) 15.97 K/uL (1.40-6.50); Neutrophils % (auto) 80.5 %; Platelet Count 351 K/uL (130-400); RDW Coefficient of Variation 13.2 % (11.5-14.5); Red Blood Count 3.78 M/uL (4.70-6.10); White Blood Count 19.83 K/ul (4.8-10.8)
[2023-06-10 08:52] LABS: Albumin Level 3.2 gm/dl (3.4-5.0); Anion Gap 6 (3-11); BUN Creatinine Ratio 13.1 (10-20); Blood Urea Nitrogen 8 mg/dl (6-23); Calcium 8.7 mg/dl (8.6-10.3); Carbon Dioxide 26 mmol/L (21-32); Chloride 102 mmol/L (98-107); Creatinine Clr Calc Pharmacy 178.8 ml/min; Est GFR (African American) > 150.0 ml/min; Est GFR (Non-African American) 137.8 ml/min; Glucose 118 mg/dl (70-99(Fasting)); Phosphorus 3.3 mg/dl (2.5-4.9); Potassium 4.6 mmol/L (3.5-5.1); Sodium 134 mmol/L (136-145)
--- NOTE | 2023-06-10 14:25 | Hospitalist Progress Note ---
Date of Service June 10, 2023 Assessment & Plan (1) Hypomagnesemia: (2) Periapical abscess with facial involvement: (3) Abscess of face: Plan Ovidio Daugherty is a 28-year-old male with no significant past medical history, who initially presented to [facility] 2 days ago for progressively worsening left-sided facial pain and swelling, along with a syncopal episode, and was given a prescription for Pen-Vee K and acetaminophen with codeine. His symptoms worsened considerably since then, and presented to the emergency department at [facility] for evaluation. Multiloculated abscess surrounding left mandibular ramus -Large periapical abscess of the second left mandibular molar, measures 6 x 4 x 4 cm -Additional periapical abscesses of the first and second right mandibular molars. Numerous dental caries. -Dr. Cornelius reviewed imaging, but is currently out of town. Recommend continuing IV antibiotics and Peridex mouthwash. -Anticipate improvement of symptoms in next 1-2 days, but if more immediate care/incision & drainage is needed he will need to be transferred to outside hospital. -Unasyn 3 g IV every 6 hours -If symptoms worsen or fail to improve, would order a repeat CT scan -WBC increased slightly from 18k to 19k, however also has had significant volumes of IV fluids so true leukocytosis may be higher (secondary to dilution) -Pantoprazole 40 mg IV daily -Tylenol 1 g IV every 8 hours as needed for mild pain or fever, Morphine sulfate 2 mg IV every 3 hours as needed for moderate to severe pain Hypomagnesemia -Magnesium 1.6 on admission, repleted -Repeat magnesium level ordered for a.m. VTE Prophylaxis: Low risk Diet: clear liquids Code Status: Full Code Admission and Anticipated Discharge Date Admission Date: June 09, 2023 Supervising Physician Co-Signing Physician Notes Attending Physician Supervision Note: I independently interviewed and examined the patient and verified the sanford history and physical, reviewed labs and image studies and agree with findings and care plan noted above. Subjective Patient seen and examined at bedside. No acute events reported overnight. He continues to have pain with the swelling, but it has been responding to the pain medication. He notes that he does have some pain up further at his jaw, closwer to his ear. Review of Systems Review of Systems: As per above Physical Exam Constitutional: WD/WN, vitals as above Eyes: + anicteric sclerae; no conjunctival abn ormality ENMT: Ears: no external ear abnormality Nose: no external nose abnormality Mouth: + restricted motion of mouth, + dental caries and + poor dentition Swelling at left side of jaw, extending towards cheek Respiratory: normal respiratory effort, lungs clear to auscultation Cardiovascular: Rate/Rhythm: regular rate and regular rhythm Skin: no rashes, warm and dry Psychiatric: A+Ox3, euthymic affect Results & Data Results & Data Vital Signs (Past 12 Hours) Vital Signs Temp Pulse Resp BP Pulse Ox O2 Del Method 06/10/23 13:07 37.0 C 87 18 127/74 95 Room Air 06/10/23 07:50 37.1 C 83 18 127/74 95 Room Air Resident Activity Tracking Resident Involvement: Resident Care Provided Care Provided: Adult Hospital Medicine
[2023-06-10] MEDS: MoRPHine SULFATE 2 MG/ML CARP IV PRN (16:57)
--- NOTE | 2023-06-11 07:13 | Electrocardiogram Report ---
Test Reason : Blood Pressure : / mmHG Vent. Rate : 109 BPM Atrial Rate : 109 BPM P-R Int : 140 ms QRS Dur : 096 ms QT Int : 358 ms P-R-T Axes : 076 083 047 degrees QTc Int : 482 ms Sinus tachycardia Otherwise normal ECG No previous ECGs available Confirmed by Jose Elias Real ([id number]) on 06/11/2023 7:12:39 AM Referred By: REFERRED SELF Confirmed By:Jose Elias Real
--- NOTE | 2023-06-11 07:41 | Hospitalist Progress Note ---
Date of Service June 11, 2023 Assessment & Plan (1) Hypomagnesemia: (2) Periapical abscess with facial involvement: (3) Abscess of face: Plan Ovidio Daugherty is a 28-year-old male with no significant past medical history, who initially presented to [facility] 2 days ago for progressively worsening left-sided facial pain and swelling, along with a syncopal episode, and was given a prescription for Pen-Vee K and acetaminophen with codeine. His symptoms worsened considerably since then, and presented to the emergency department at [facility] for evaluation. Multiloculated abscess surrounding left mandibular ramus -Large periapical abscess of the second left mandibular molar, measures 6 x 4 x 4 cm -Additional periapical abscesses of the first and second right mandibular molars. Numerous dental caries. -Dr. Cornelius reviewed imaging, but is currently out of town. Recommend continuing IV antibiotics and Peridex mouthwash. -Anticipate improvement of symptoms in next 1-2 days, but if more immediate care/incision & drainage is needed he will need to be transferred to outside hospital. -Unasyn 3 g IV every 6 hours -Ordered repeat CT scan due to lack of improvement in pain, although WBC slightly decreased today to 16k -Pantoprazole 40 mg IV daily -Tylenol 1 g IV every 8 hours as needed for mild pain or fever, Morphine sulfate 2 mg IV every 2 hours as needed for moderate to severe pain Hypomagnesemia -Magnesium 1.6 on admission, repleted -Repeat magnesium level ordered for a.m. VTE Prophylaxis: Low risk Diet: clear liquids Code Status: Full Code Admission and Anticipated Discharge Date Admission Date: June 09, 2023 Supervising Physician Co-Signing Physician Notes Attending Physician Supervision Note: I independently interviewed and examined the patient and verified the sanford history and physical, reviewed labs and image studies and agree with findings and care plan noted above. Subjective No acute events reported overnight, patient seen and examined at bedside. Patient notes that he does feel some more throbbing in his left sided jaw this morning which feels a bit different from before. Denies any other concerns at this time. CM working on setting up a PCP for him through the [facility]. Review of Systems Review of Systems: As per above Physical Exam Constitutional: WD/WN, vitals as above Eyes: + anicteric sclerae; no conjunctival abn ormality ENMT: Ears: no external ear abnormality Nose: no external nose abnormality Mouth: + restricted motion of mouth, + dental caries and + poor dentition Ongoing swelling at left side of face/jaw Respiratory: normal respiratory effort, lungs clear to auscultation Cardiovascular: Limbs well perfused Skin: no rashes, warm and dry Psychiatric: A+Ox3, euthymic affect Results & Data Results & Data Vital Signs (Past 12 Hours) Vital Signs Temp Pulse Resp BP Pulse Ox O2 Del Method 06/11/23 07:25 37.1 C 86 18 121/73 96 Room Air 06/10/23 20:15 37.7 C H 84 16 122/76 98 Room Air Resident Activity Tracking Resident Involvement: Resident Care Provided Care Provided: Adult Hospital Medicine
[2023-06-11 07:57] LABS: Basophils # (auto) 0.04 K/uL (0.00-0.20); Basophils % (auto) 0.2 %; Eosinophils # (auto) 0.27 K/uL (0.00-0.50); Eosinophils % (auto) 1.6 %; Hematocrit (blood only) 33.2 % (42.0-52.0); Hemoglobin 10.7 g/dl (14.0-18.0); Immature Granulocytes % (auto) 0.6 %; Lymphocytes % (auto) 9.8 %; Mean Corpuscular Hemoglobin 27.9 pg (25.0-34.0); Mean Corpuscular Hgb Conc 32.2 g/dL (32.0-36.0); Mean Corpuscular Volume 86.7 fL (80.0-100.0); Mean Platelet Volume 10.6 fL (9.4-12.4); Monocytes # (auto) 0.94 K/uL (0.11-0.59); Monocytes % (auto) 5.7 %; Neutrophils # (auto) 13.42 K/uL (1.40-6.50); Neutrophils % (auto) 82.1 %; Platelet Count 398 K/uL (130-400); RDW Coefficient of Variation 13.2 % (11.5-14.5); RDW Standard Deviation 41.6 fL (36.4-46.3); Red Blood Count 3.83 M/uL (4.70-6.10); White Blood Count 16.37 K/ul (4.8-10.8)
[2023-06-11 08:20] LABS: Albumin Level 3.2 gm/dl (3.4-5.0); Anion Gap 8 (3-11); BUN Creatinine Ratio 7.4 (10-20); Blood Urea Nitrogen 4 mg/dl (6-23); Calcium 8.9 mg/dl (8.6-10.3); Carbon Dioxide 25 mmol/L (21-32); Chloride 100 mmol/L (98-107); Est GFR (African American) > 150.0 ml/min; Est GFR (Non-African American) 144.9 ml/min; Glucose 116 mg/dl (70-99(Fasting)); Magnesium 1.9 mg/dl (1.7-2.4); Potassium 4.2 mmol/L (3.5-5.1); Sodium 133 mmol/L (136-145)
[2023-06-11 15:17] LABS: Codeine Urine 542 ng/mL (<50); Hydrocodone Urine NEGATIVE ng/mL (<50); Hydromor Urine 63 ng/mL (<50); Marijuana Quant, GCMS Urine 2113 ng/mL (<5); Morphine Urine 2110 ng/mL (<50); Norhydrocodone Conf Ur NEGATIVE ng/mL (<50); Noroxycodone Urine NEGATIVE ng/mL (<50); Oxycodone Urine NEGATIVE ng/mL (<50); Oxymorph Urine NEGATIVE ng/mL (<50)
[2023-06-11] MEDS: OPTIRAY 320 100ml IV ONE (18:08)
--- NOTE | 2023-06-11 18:46 | CT Scan Report ---
CT OF THE NECK WITH IV CONTRAST CLINICAL HISTORY: Worsening L cheek pain COMPARISON STUDY: Neck CT June 09, 2023. TECHNIQUE: Following IV administration of 94 mL of Optiray, helical axial images of the neck were ob tained. Sagittal and coronal reconstructions were viewed. Automated exposure control was utilized f or the study. A dose lowering technique was utilized adhering to the principles of ALARA. FINDINGS: Visualized portions of the intracranial contents are unremarkable. Numerous dental caries and periapical lucencies/abscesses are present. A large multiloculated abscess centered along the inf erior aspect the left hemimandible has increased in size since CT of June 09, 2023. This now measures approximately 7.7 x 4.5 cm, previously 6.2 x 3.8 cm. Extensive adjacent inflammation is noted. The a bscess extends into the adjacent left masseter and pterygoid muscles. This abscess likely arises from a periapical abscess of the left second mandibular molar. There is periostitis of the left hemimandi ble as well as relative lucency of the left hemimandible with a permeative appearance. There is assoc iated thickening of the left platysma. There is mild asymmetric enlargement of the left submandibular gland. There is no soft tissue gas. Mild left cervical lymphadenopathy is reactive. Epiglottis is no rmal. Major vasculature of the neck is patent. Orbits are unremarkable. There is no evidence for sinu sitis. Mastoid air cells are clear. IMPRESSION: 1. Increase in size of a large multiloculated abscess centered along the inferior aspect of the left hemimandible since CT of June 09, 2023, now measuring approximately 7.7 x 4.5 cm. This abscess likely arises from a periapical abscess of the left second mandibular molar. The abscess extends into the l eft masseter and pterygoid muscles. Extensive adjacent inflammation. Probable associated osteomyeliti s of the left hemimandible. Incision and drainage of the abscess is suggested. 2. Extensive odontogenic disease with numerous periapical lucencies/abscesses and dental caries. ACT 112: Negative or not required by law. Electronically signed by: Jesus Slater M.D. 06/11/2023 6:43 PM
--- NOTE | 2023-06-11 20:06 | Discharge Summary ---
Date of Service June 11, 2023 Admission HPI Per Admitting Provider The patient is a 28-year-old male with no significant past medical history, who initially presented to [facility] 2 days ago for progressively worsening left-sided facial pain and swelling, along with a syncopal episode, and was given a prescription for Pen-Vee K and acetaminophen with codeine. His symptoms worsened considerably since then, and presented to the emergency department at [facility] for assessment. CT scan of soft tissue of neck and face showed a 6 x 4 x 4 cm left mandibular ramus abscess, and a large periapical abscess second left, and a small right mandibular abscess adjacent to first and second Principal Diagnosis Periapical abscess - Left Discharge Exam In distress due to pain from facial swelling Face - left side generalized lower facial swelling. No respiratory distress. Discharge Data Allergies Allergy/AdvReac Type Severity Reaction Status Date / Time pollen extracts Allergy Intermediate ITCHY Verified 06/08/23 23:08 EYES, SNEEZING Consultations 06/09/23 00:48 ED Decision to Admit Stat 06/09/23 02:05 Consult Oromaxillofacial Surgery Routine Ordered Studies 06/08/23 22:44 CT soft tissue neck w con Stat 06/11/23 17:26 CT soft tissue neck w con Urgent Hospital Course (1) Hypomagnesemia: (2) Periapical abscess with facial involvement: (3) Abscess of face: Plan Ovidio Daugherty is a 28-year-old male with no significant past medical history, who initially presented to [facility] 2 days ago for progressively worsening left-sided facial pain and swelling, along with a syncopal episode, and was given a prescription for Pen-Vee K and acetaminophen with codeine. His symptoms worsened considerably since then, and presented to the emergency department at [facility] for evaluation. Multiloculated abscess surrounding left mandibular ramus -Large periapical abscess of the second left mandibular molar, measures 6 x 4 x 4 cm -Additional periapical abscesses of the first and second right mandibular mol ars. Numerous dental caries. -Dr. Cornelius reviewed imaging, but is currently out of town. Recommend continuing IV antibiotics and Peridex mouthwash. -Anticipate improvement of symptoms in next 1-2 days, but if more immediate care/incision & drainage is needed he will need to be transferred to outside hospital. -Kept on Unasyn 3 g IV every 6 hours and clear liquid diet. -Due to worsening swelling 06/11/23 - Ordered repeat CT scan due to lack of improvement in pain - Showing worsening abscess 7.7x4.5. -Contacted [facility] - patient accepted for transfer by Dr Menezes service. Total Time Total Time Spent Total Time Spent (In Minutes): 35 Discharge Plan Discharge Items Patient Disposition: Transfer Acute Care Hospital Reason For Visit: DENTAL/MANDIBULAR ABSCESS Discharge Diagnosis: Dental/Mandibular abscess Activity: Resume your previous activity Non-emergency contact: Primary Care Provider Call non-emergency contact if: you have any medication questions Follow-up/Referrals: PCP,NO [Primary Care Provider] - Diet: Clear liquid Addtl Attending Provider Instructions: You are being transferred to [facility] for drainage of the abscess Pending Studies at Discharge: No Stand-Alone Forms: My [facility] Skilled Items Patient informed of condition?: Yes DNR: No Discharge Level of Care: Other Communicable Disease: No Discharge Prognosis: Stable Lines: Peripheral IV Urinary Catheter: No Medications and DC Order Prescriptions: Discontinued penicillin V potassium 500 mg Tablet 500 mg PO QID Rx Instructions: PER PT "HAVE A COUPLE LEFT" acetaminophen-codeine [Tylenol-Codeine #3] 300-30 mg Tablet 1 tab PO Q4H PRN (Reason: Pain) ibuprofen 200 mg Tablet 400 - 800 mg PO DIRECTED PRN (Reason: Pain) Discharge Orders: Discharge Order (Routine); Ordered 06/11/23 Ordered By: Alina Rodrigues Admission Data Admit Date/Time: 06/09/23 02:05 Attending Provider: Alina Rodrigues Admit Provider: Rodrigo Saldana Primary Care Provider: PCP,NO Other Providers: Miguel Angel Cornelius; Rodrigo Saldana
[2023-06-12 09:34] LABS: Basophils # (auto) 0.06 K/uL (0.00-0.20); Basophils % (auto) 0.6 %; Eosinophils % (auto) 3.7 %; Hematocrit (blood only) 35.5 % (42.0-52.0); Hemoglobin 11.3 g/dl (14.0-18.0); Immature Granulocytes # (auto) 0.08 K/uL (0.01-0.20); Immature Granulocytes % (auto) 0.7 %; Lymphocytes # (auto) 1.55 K/uL (1.20-3.40); Lymphocytes % (auto) 14.3 %; Mean Corpuscular Hemoglobin 27.9 pg (25.0-34.0); Mean Corpuscular Hgb Conc 31.8 g/dL (32.0-36.0); Mean Corpuscular Volume 87.7 fL (80.0-100.0); Monocytes # (auto) 0.83 K/uL (0.11-0.59); Monocytes % (auto) 7.7 %; Neutrophils # (auto) 7.91 K/uL (1.40-6.50); Platelet Count 456 K/uL (130-400); RDW Coefficient of Variation 13.1 % (11.5-14.5); Red Blood Count 4.05 M/uL (4.70-6.10); White Blood Count 10.83 K/ul (4.8-10.8)
[2023-06-12 09:49] LABS: Albumin Level 3.4 gm/dl (3.4-5.0); Anion Gap 7 (3-11); BUN Creatinine Ratio 6.6 (10-20); Blood Urea Nitrogen 4 mg/dl (6-23); Calcium 9.3 mg/dl (8.6-10.3); Carbon Dioxide 28 mmol/L (21-32); Chloride 101 mmol/L (98-107); Creatinine Clr Calc Pharmacy 178.8 ml/min; Est GFR (African American) > 150.0 ml/min; Est GFR (Non-African American) 137.8 ml/min; Glucose 113 mg/dl (70-99(Fasting)); Phosphorus 3.9 mg/dl (2.5-4.9); Potassium 4.1 mmol/L (3.5-5.1); Sodium 136 mmol/L (136-145)
[2023-06-13 12:02] LABS: A calco-baum cmplx NotReported Not Detected (NotDetected); Bact fragilis Not Reported Not Detected (NotDetected); Blood Culture Id Panel PCR Panel Negative (NotDetected); C auris Not Reported Not Detected (NotDetected); Calbicans Not Reported Not Detected (NotDetected); Candida glabrata Not Reported Not Detected (NotDetected); Candida krusei Not Reported Not Detected (NotDetected); Cneoformans/gatti Not Reported Not Detected (NotDetected); Cparapsilosis Not Reported Not Detected (NotDetected); E cloacae compx Not Reported Not Detected (NotDetected); Efaecalis Not Reported Not Detected (NotDetected); Efaecium Not Reported Not Detected (NotDetected); Enterobacterales Not Reported Not Detected (NotDetected); Escherichia coli Not Reported Not Detected (NotDetected); H influenzae Not Reported Not Detected (NotDetected); K aerogenes Not Reported Not Detected (NotDetected); Koxytoca Not Reported Not Detected (NotDetected); Kpneumoniae grp Not Reported Not Detected (NotDetected); Lmonocyt Not Reported Not Detected (NotDetected); N meningitidis Not Reported Not Detected (NotDetected); P aeruginosa Not Reported Not Detected (NotDetected); Proteus spp Not Reported Not Detected (NotDetected); Salmonella spp Not Reported Not Detected (NotDetected); Smarcescens Not Reported Not Detected (NotDetected); Staph lugdunensis Not Reported Not Detected (NotDetected); Staph spp. Not Reported Not Detected (NotDetected); Staphaureus Not Reported Not Detected (NotDetected); Staphepi Not Reported Not Detected (NotDetected); Stenmaltophilia Not Reported Not Detected (NotDetected); Strep agal(GrpB) Not Reported Not Detected (NotDetected); Strep pneum Not Reported Not Detected (NotDetected); Strep pyog (GrpA) Not Reported Not Detected (NotDetected); Strep spp Not Reported Not Detected (NotDetected)
== END 2023-06-12 10:39 | disposition short-term general hospital (02) | DRG 158 ==
LOC: ED 22:23 → SUATTDRO 06-09 02:05 → 3N 06-09 02:05